=== PATIENT | female | born 1990 | race Caucasian/White ===

== ENCOUNTER 2021-07-31 08:52 | Emergency (ER) | payer OTHER, BC ==
[2021-07-31] MEDS ORDERED: Boostrix 0.5 ML (Tdap) VIAL ONE (09:20)
[2021-07-31] MEDS ORDERED: Rabies Immune Globulin 1500 UNITS/10 ML VIAL IM SCH (10:00)
[2021-07-31] MEDS ORDERED: Rabies Vaccine Human 2.5 UNITS VIAL IM ONE (10:00)
[2021-07-31] MEDS ORDERED: Bacitracin 1 PK ONE ×2 (11:22→11:27)
== END 2021-07-31 11:38 | disposition home or self-care (01) ==
LOC: ERS 08:52
DX: S61.252A Open bite of right middle finger without damage to nail, initial encounter (principal); S61.254A Open bite of right ring finger without damage to nail, initial encounter; S70.311A Abrasion, right thigh, initial encounter; S80.211A Abrasion, right knee, initial encounter; W54.0XXA Bitten by dog, initial encounter
CPT/HCPCS: 90375; 90471; 90472; 90675; 90715; 94760; 96372

== ENCOUNTER → 2021-08-03 | Day surgery (SDC) | payer BC ==
[~2021-08-03] MED LIST: Rabies Vaccine Human 2.5 UNITS VIAL IM ONE
== END | disposition home or self-care (01) ==
LOC: EDSTATUS 15:38 → ERS 16:35 → ER/OP 16:35
DX: Z23 Encounter for immunization (principal)
CPT/HCPCS: 90471; 90675

== ENCOUNTER → 2021-08-07 | Day surgery (SDC) | payer BC ==
[~2021-08-07] MED LIST changes: -Rabies Vaccine Human 2.5 UNITS VIAL IM ONE; +Rabies Vaccine Human 2.5 UNITS VIAL ONE
== END | disposition home or self-care (01) ==
LOC: ER/OP 09:06
DX: Z23 Encounter for immunization (principal)
CPT/HCPCS: 90471; 90675